=== PATIENT | male | born 1950 | race Caucasian/White ===

== ENCOUNTER 2018-02-28 12:07 | Outpatient (CLI) | payer MEDICARE | END 2018-02-28 12:08 | disposition home or self-care (01) | LOC: BICULT 12:07 | PROVIDERS: ATTEND Internal Medicine Geriatric Medicine | DX: R55 Syncope and collapse (principal) | CPT/HCPCS: 93880 ==

== ENCOUNTER 2019-02-09 18:22 | Emergency (ER) | payer MEDICARE ==
[2019-02-09] MEDS ORDERED: Bacitracin 1 PK ONE (19:26)
== END 2019-02-09 19:40 | disposition home or self-care (01) ==
LOC: ERS 18:22
DX: L72.3 Sebaceous cyst (principal)
CPT/HCPCS: 54700

== ENCOUNTER 2019-05-17 10:41 | Outpatient (CLI) | payer MEDICARE ==
--- NOTE | 2019-05-17 14:25 | ULT ---
BILATERAL RENAL ULTRASOUND: Date: 05/17/19 HISTORY: Poor urinary stream, difficulty urinating. FINDINGS: The right kidney measures 11.8 cm in length and the left kidney measures 10.6 cm in length. No focal mass or hydronephrosis seen on either side. The urinary bladder has a pre-void volume of 257 mL and a post-void residual of 83 mL. Urinary bladder is otherwise unremarkable. IMPRESSION: Increased post-void residual volume of the urinary bladder. POS: OFF
== END 2019-05-17 10:42 | disposition home or self-care (01) ==
LOC: SCSULT 10:41
PROVIDERS: ATTEND Urology
DX: R39.12 Poor urinary stream (principal); N39.43 Post-void dribbling
CPT/HCPCS: 76770

== ENCOUNTER 2020-01-01 06:25 | Outpatient (CLI) | payer MEDICARE, OTHER ==
--- NOTE | 2020-01-01 14:03 | RAD ---
CHEST 2 VIEWS: INDICATION: Preop evaluation. COMPARISON: None. FINDINGS: The lungs are mildly hyperinflated but clear. Heart size is normal-appearing. No pleural effusion i s evident. No acute osseous abnormality is noted. IMPRESSION: No acute cardiopulmonary abnormality. POS: BH
[2020-01-01 14:18] LABS: Hemoglobin 17.1 g/dL (14.0-18.0); Mean Corpuscular HGB CONC 32.6 g/dL (32.0-36.0); Mean Corpuscular Hemoglobin 31.8 pg (27.0-31.0); Mean Corpuscular Volume 97.4 fL (78.0-98.0); Platelet Count 176 thou/uL (130-400); RBC Distribution Width 11.7 % (11.5-14.5); Red Blood Cell (RBC) Count 5.37 mill/uL (4.70-6.10); White Blood Cell (WBC) Count 5.9 thou/uL (4.8-10.8)
[2020-01-01 14:21] LABS: PTT 30.4 sec (22.9-36.1); Prothrombin Time 12.7 sec (12.0-14.7)
[2020-01-01 14:38] LABS: Anion Gap 11 mmol/L (10-20); BUN (Urea Nitrogen) 16 mg/dL (8.4-25.7); Calc. Creatinine Clearance 0 mL/min (70-130); Carbon Dioxide 31 mmol/L (23-31); Chloride 102 mmol/L (98-107); Estimated GFR-MDRD 74; Glucose 74 mg/dL (80-115); Potassium 4.5 mmol/L (3.5-5.1); Sodium 139 mmol/L (136-145)
[2020-01-01 14:46] LABS: Bacteria/HPF None Seen HPF (None Seen); Bilirubin Negative (Negative); Blood, Urine Negative (Negative); Clarity Clear (Clear); Glucose, Urine (Dipstick) Normal (Negative); Leukocyte Negative Leu/uL (Negative); Nitrite Negative (Negative); Protein, Urine (Dipstick) Negative (Neg-Trace); RBC/HPF 0-3 HPF (0-3); Squamous Epithelial 0-3 HPF (0-3); Urobilinogen Normal mg/dL (Less than 2); WBC/HPF 0-3 HPF (0-3)
== END 2020-01-01 06:26 | disposition home or self-care (01) ==
LOC: LABBT 06:25
PROVIDERS: ATTEND Urology
DX: Z01.818 Encounter for other preprocedural examination (principal); Z11.59 Encounter for screening for other viral diseases; N40.1 Benign prostatic hyperplasia with lower urinary tract symptoms; N39.0 Urinary tract infection, site not specified; N52.9 Male erectile dysfunction, unspecified; R39.12 Poor urinary stream
CPT/HCPCS: 71046; 80048; 81001; 85027; 85610; 85730; 87086; U0003; 87635

== ENCOUNTER 2020-01-04 09:35 | Day surgery (SDC) | payer MEDICARE ==
[2020-01-04] MEDS ORDERED: Lidocaine 1% PF 5 ML VIAL ONE (10:18)
[2020-01-04] MEDS ORDERED: PROPOFOL 200 MG/20 ML VIAL ONE (10:18)
[2020-01-04] MEDS ORDERED: Ondansetron PF 4 MG/2 ML Vial ONE ×2 (10:18→11:13)
[2020-01-04] MEDS ORDERED: Levofloxacin 500 mg/D5W 100 ml Premix Bag ONE (10:22)
[2020-01-04] MEDS ORDERED: Midazolam HCl 2 mg/2 ml Vial ONE (11:13)
[2020-01-04] MEDS ORDERED: Fentanyl 100 MCG/2 ML VIAL ONE (11:13)
[2020-01-04] MEDS ORDERED: Famotidine/PF 20 mg/2ml Vial ONE (11:13)
--- NOTE | 2020-01-04 14:15 | OP ---
DATE OF PROCEDURE: 01/04/2020 SERVICE: Urology. PREOPERATIVE DIAGNOSIS: Benign prostatic hyperplasia with urinary obstruction. POSTOPERATIVE DIAGNOSIS: Benign prostatic hyperplasia with urinary obstruction. PROCEDURE PERFORMED: UroLift with 4 implants. INDICATIONS FOR PROCEDURE: Mr. Saeed is a 69-year-old white male with BPH and urinary complaints. He does not wish to be on any medical therapy to preserve sexual function. We discussed options and he elected to proceed forward with the UroLift procedure. DESCRIPTION OF PROCEDURE: After identification of armband and verification of consent, the patient was brought back to the operating room, where he underwent total intravenous anesthesia. He was then placed in dorsal lithotomy position and prepped and draped in usual sterile fashion. After appropriate time-out, a lubricated 21-Nigerian rigid cystoscope with visual obturator was passed through the urethra into the bladder. The visual obturator was switched out for the UroLift device. The initial implantation was placed at the patient's left bladder neck. The UroLift device was withdrawn away from the bladder neck approximately 1.5 to 2 cm and then lateral compression achieved. The safety was released and the needle deployed with blue trigger. Tension was then set with the palafox trigger to deliver the capsular end piece. The UroLift was then advanced forward until the white line was in the keyhole, at which point, the urethral tab was attached with the back trigger. This resulted in nice lateral compression. The same thing was repeated on the contralateral aspect on the right toward the bladder neck. Neither implant was too close to the bladder neck. This was then done at the apex near the verumontanum on both sides, which resulted in excellent opening of the prostate with no evidence of obstruction. I felt that 4 implants was sufficient and the patient had a very nice opening. The cystoscope was then removed and an 18-Nigerian Waldrop catheter was placed into the patient's bladder. 10 mL sterile water placed into the balloon. He was then awakened, taken out of positioning, and taken to Day Stay for recovery in stable condition. COMPLICATIONS: None. ESTIMATED BLOOD LOSS: Minimal. RETAINED TUBES AND DRAINS: 18-Nigerian Waldrop catheter. SPECIMENS: None. IMPLANTS USED: 4. DISPOSITION: The patient will be kept in Day Stay for a void trial. After his void trial, will be discharged home and his care will be handled on outpatient basis. Job ID: [id number]
== END 2020-01-04 15:35 | disposition home or self-care (01) ==
LOC: SDC 09:35
PROVIDERS: ATTEND Urology
PROC: 0T7D8DZ Dilation of Urethra with Intraluminal Device, Via Natural or Artificial Opening Endoscopic (ICD-10-PCS; principal; 2020-01-04)
DX: N40.1 Benign prostatic hyperplasia with lower urinary tract symptoms (principal); N13.8 Other obstructive and reflux uropathy; E78.5 Hyperlipidemia, unspecified; N52.9 Male erectile dysfunction, unspecified; Z79.899 Other long term (current) drug therapy; Z88.6 Allergy status to analgesic agent
CPT/HCPCS: C1889; C9740; J1956; J2001; J2250; J2405; J2704; J3010; S0028

== ENCOUNTER 2021-01-06 08:39 | Outpatient (CLI) | payer MEDICARE ==
[2021-01-06] MEDS ORDERED: Magnevist 469MG/ML 20 ML VIAL ONE (13:53)
== END 2021-01-06 08:40 | disposition home or self-care (01) ==
LOC: TBSIIMAG 08:39
PROVIDERS: ATTEND Urology
DX: C61 Malignant neoplasm of prostate (principal)
CPT/HCPCS: 72197; 82565; A9579

== ENCOUNTER 2024-08-02 09:33 | Outpatient (CLI) | payer MEDICARE ==
[2024-08-02 11:21] LABS: Calc. Creatinine Clearance 0 mL/min (70-130); Estimated GFR 94
[2024-08-02 11:23] LABS: #Basophils Less than 0.03 10x3/uL (0.0-0.2); %Basophils 0.3 % (0.0-1.0); %Eosinophils 1.3 % (0.0-10.0); %Lymphocytes 31.5 % (21.0-51.0); %Monocytes 10.9 % (0.0-10.0); %Neutrophils 55.7 % (42.0-75.0); ALT (SGPT) 18 U/L (8-55); AST (SGOT) 16 U/L (5-34); Albumin 4.2 g/dL (3.4-4.8); Alkaline Phosphatase 44 U/L (40-110); Anion Gap 10 mmol/L (10-20); BUN (Urea Nitrogen) 11 mg/dL (8.4-25.7); Bilirubin, Total 0.8 mg/dL (0.2-1.2); Calcium 9.2 mg/dL (7.8-10.44); Carbon Dioxide 29 mmol/L (23-31); Chloride 98 mmol/L (98-107); Globulin 2.9 g/dL (2.4-3.5); Glucose 75 mg/dL (83-110); Hematocrit 51.2 % (42.0-52.0); Hemoglobin 17.1 g/dL (14.0-18.0); Mean Corpuscular HGB CONC 33.4 g/dL (32.0-36.0); Mean Corpuscular Hemoglobin 31.4 pg (27.0-31.0); Mean Corpuscular Volume 94.1 fL (78.0-98.0); Mean Platelet Volume 9.8 fL (7.4-10.4); Platelet Count 178 10x3/uL (130-400); Potassium 4.7 mmol/L (3.5-5.1); Protein, Total 7.1 g/dL (5.8-8.1); RBC Distribution Width 12.4 % (11.5-14.5); Red Blood Cell (RBC) Count 5.44 mill/uL (4.70-6.10); Sodium 132 mmol/L (136-145)
[2024-08-02 11:37] LABS: PTT 29.5 sec (22.9-36.1); Prothrombin Time 13.4 sec (12.0-14.7)
[2024-08-02 11:40] LABS: Bacteria/HPF None Seen HPF (None Seen); Bilirubin Negative (Negative); Blood, Urine Negative (Negative); Glucose, Urine (Dipstick) Normal (Negative); Ketone, Urine Negative (Negative); Leukocyte Negative Leu/uL (Negative); Nitrite Negative (Negative); Protein, Urine (Dipstick) Negative (Neg-Trace); RBC/HPF 0-3 HPF (0-3); Specific Gravity, Urine 1.013 (1.002-1.036); Squamous Epithelial 0-3 HPF (0-3); Urobilinogen Normal mg/dL (Less than 2); WBC/HPF 0-3 HPF (0-3)
[2024-08-02 11:41] LABS: Clarity Cloudy (Clear)
== END 2024-08-02 09:34 | disposition home or self-care (01) ==
LOC: LABBT 09:33
PROVIDERS: ATTEND Urology
DX: Z01.818 Encounter for other preprocedural examination (principal); C61 Malignant neoplasm of prostate; N40.1 Benign prostatic hyperplasia with lower urinary tract symptoms; N39.0 Urinary tract infection, site not specified; N52.9 Male erectile dysfunction, unspecified; I45.10 Unspecified right bundle-branch block
CPT/HCPCS: 71046; 80053; 81001; 85025; 85610; 85730; 87086; 93005; 93010

== ENCOUNTER 2024-08-16 05:56 | Observation (INO) | payer MEDICARE ==
[2024-08-02 10:05] VITALS: BMI 22.4
[2024-08-16] MEDS ORDERED: PROPOFOL 20 ML ONE (07:28)
[2024-08-16] MEDS ORDERED: fentaNYL PF 100 MCG/2 ML SYRINGE ONE (07:28)
[2024-08-16] MEDS ORDERED: Rocuronium Bromide 10 MG/ML (10ML VIAL) ONE ×2 (07:29→11:15)
[2024-08-16] MEDS ORDERED: Lidocaine 2% PF 5 ML VIAL ONE (07:29)
[2024-08-16] MEDS ORDERED: ceFOXitin 1 GM VIAL ONE ×2 (07:34→09:20)
[2024-08-16] MEDS ORDERED: ePHEDrine Sulfate 50 MG/10 ML VIAL ONE (07:57)
[2024-08-16] MEDS ORDERED: PHENYLEPHRINE-NS 100 MCG/ML 10 ML SYRINGE ONE (07:58)
[2024-08-16] MEDS ORDERED: Dexmedetomidine 200 MCG/2 ML VIAL ONE (08:19)
[2024-08-16] MEDS ORDERED: Glycopyrrolate 0.2 MG/ML 5 ML SYRINGE ONE (08:26)
[2024-08-16] MEDS ORDERED: Bupivacaine 0.25% HCL 30 ML VIAL ONE (10:33)
[2024-08-16] MEDS ORDERED: Ondansetron PF 4 MG/2 ML Vial ONE (11:48)
[2024-08-16] MEDS ORDERED: Ketorolac Tromethamine 30 MG (1 mL) VIAL ONE (11:48)
[2024-08-16] MEDS ORDERED: Dexamethasone 20 MG/5 ML VIAL ONE (11:48)
[2024-08-16] MEDS ORDERED: SUGAMMADEX SODIUM 200 MG/2 ML VIAL ONE (11:53)
[2024-08-16] MEDS ORDERED: fentaNYL 50 mcg/mL 1 mL Vial ONE ×2 (13:20→13:41)
[2024-08-16] MEDS ORDERED: Oxybutynin 5 MG TAB PO PRN (13:39)
[2024-08-16] MEDS ORDERED: Ondansetron PF 4 MG/2 ML Vial IVP PRN (13:39)
[2024-08-16] MEDS ORDERED: diphenhydrAMINE 25 MG CAP PO PRN (13:39)
[2024-08-16] MEDS ORDERED: Hyoscyamine SL 0.125 MG TAB SL PRN (13:39)
[2024-08-16] MEDS ORDERED: hydrALAZINE 20 MG/ML VIAL SLOW IVP PRN (13:39)
[2024-08-16] MEDS ORDERED: Mag-Al 1200 mg/1200 mg/30 ML UDCUP PO PRN (13:39)
[2024-08-16] MEDS ORDERED: fentaNYL 50 mcg/mL 1 mL Vial SLOW IVP PRN (13:41)
[2024-08-16] MEDS ORDERED: oxyCODONE 5 MG TAB PO PRN ×2 (13:41)
[2024-08-16 14:10] LABS: #Basophils Less than 0.03 10x3/uL (0.0-0.2); #Eosinophils Less than 0.03 10x3/uL (0.0-0.7); %Neutrophils 92.7 % (42.0-75.0); Hematocrit 43.2 % (42.0-52.0); Hemoglobin 14.9 g/dL (14.0-18.0); Mean Corpuscular HGB CONC 34.5 g/dL (32.0-36.0); Mean Corpuscular Hemoglobin 31.3 pg (27.0-31.0); Mean Corpuscular Volume 90.8 fL (78.0-98.0); Mean Platelet Volume 9.5 fL (7.4-10.4); Platelet Count 152 10x3/uL (130-400); RBC Distribution Width 12.2 % (11.5-14.5); Red Blood Cell (RBC) Count 4.76 mill/uL (4.70-6.10)
[2024-08-16 14:23] LABS: Anion Gap 10 mmol/L (10-20); BUN (Urea Nitrogen) 8 mg/dL (8.4-25.7); Calc. Creatinine Clearance 109 mL/min (70-130); Calcium 7.8 mg/dL (7.8-10.44); Carbon Dioxide 23 mmol/L (23-31); Chloride 102 mmol/L (98-107); Estimated GFR 99; Glucose 147 mg/dL (83-110); Potassium 3.9 mmol/L (3.5-5.1); Sodium 131 mmol/L (136-145)
[2024-08-16] MEDS: Ketorolac Tromethamine 30 MG (1 mL) VIAL IVP SCH (17:46)
[2024-08-16] MEDS: Acetaminophen 500 MG TAB PO SCH (17:47)
[2024-08-16] MEDS: traMADol HCl 50 MG TAB PO SCH (17:48)
[2024-08-16] MEDS: cefOXitin Sodium 1 GM in Sodium Chloride 0.9% 100 ML IVPB SCH (17:48)
[2024-08-16] MEDS: Sodium Chloride 0.9% 1,000 ML IV SCH (17:49)
[2024-08-16] MEDS: Docusate 100 MG CAP PO SCH (20:47)
[2024-08-17 05:42] LABS: #Basophils Less than 0.03 10x3/uL (0.0-0.2); #Eosinophils Less than 0.03 10x3/uL (0.0-0.7); %Basophils 0.1 % (0.0-1.0); %Lymphocytes 8.5 % (21.0-51.0); %Monocytes 8.4 % (0.0-10.0); %Neutrophils 82.4 % (42.0-75.0); Hematocrit 41.4 % (42.0-52.0); Hemoglobin 14.1 g/dL (14.0-18.0); Mean Corpuscular HGB CONC 34.1 g/dL (32.0-36.0); Mean Corpuscular Hemoglobin 31.6 pg (27.0-31.0); Mean Corpuscular Volume 92.8 fL (78.0-98.0); Mean Platelet Volume 9.6 fL (7.4-10.4); Platelet Count 158 10x3/uL (130-400); RBC Distribution Width 12.3 % (11.5-14.5); Red Blood Cell (RBC) Count 4.46 mill/uL (4.70-6.10)
[2024-08-17 06:21] LABS: Anion Gap 12 mmol/L (10-20); BUN (Urea Nitrogen) 9 mg/dL (8.4-25.7); Calc. Creatinine Clearance 84 mL/min (70-130); Calcium 7.7 mg/dL (7.8-10.44); Carbon Dioxide 23 mmol/L (23-31); Chloride 98 mmol/L (98-107); Estimated GFR 92; Glucose 117 mg/dL (83-110); Potassium 4.4 mmol/L (3.5-5.1); Sodium 129 mmol/L (136-145)
[2024-08-17 15:27] VITALS: BP 105/61; TEMP 98.3
== END 2024-08-17 15:49 | disposition home or self-care (01) ==
LOC: SDC 05:56 → UNDOADMOB 15:41 → SURG A 15:41
PROVIDERS: ADMIT Urology; ATTEND Urology
PROC: 0VT04ZZ Resection of Prostate, Percutaneous Endoscopic Approach (ICD-10-PCS; principal; 2024-08-16)
DX: C61 Malignant neoplasm of prostate (principal); N40.0 Benign prostatic hyperplasia without lower urinary tract symptoms; E78.5 Hyperlipidemia, unspecified; Z88.8 Allergy status to other drugs, medicaments and biological substances
CPT/HCPCS: 55866; 80048 ×2; 85025 ×2; 86850; 86900; 86901; 86920; A4333; C1713; C1776 ×2; C1889; C2613; J0665; J0694 ×2; J1100; J1885 ×2; J2405; J2704; J3010; S2900; 36415

== ENCOUNTER 2024-09-05 07:49 | Outpatient (CLI) | payer MEDICARE ==
[2024-09-05] MEDS ORDERED: Iopamidol-370 76% 500 ML BOT (X-RAY USE) FS ONE (07:50)
== END 2024-09-05 07:50 | disposition home or self-care (01) ==
LOC: RAD 07:49
PROVIDERS: ATTEND Urology
DX: C61 Malignant neoplasm of prostate (principal); R32 Unspecified urinary incontinence
CPT/HCPCS: 51600; 74430; Q9967